=== PATIENT | female | born 1970 | race Caucasian/White ===

== ENCOUNTER → 2019-11-20 16:50 | Outpatient (BNVA) | payer BC, SELFPAY | PROVIDERS: Family Provider Family Medicine; Visit Provider Obstetrics & Gynecology | DX: R53.83 Other fatigue (principal) | CPT/HCPCS: 84443 ==

== ENCOUNTER → 2019-11-28 09:46 | Outpatient (BNVA) | payer BC, SELFPAY | PROVIDERS: Family Provider Family Medicine; Visit Provider Obstetrics & Gynecology | DX: N90.89 Other specified noninflammatory disorders of vulva and perineum (principal) | CPT/HCPCS: 88305 ==

== ENCOUNTER 2020-04-19 12:00 | Outpatient (CLI) | payer BC, SELFPAY | END 2020-04-19 12:01 | disposition home or self-care (01) | LOC: SLEEP 04-20 15:04 | PROVIDERS: Family Provider Family Medicine; Visit Provider Specialist | DX: G47.10 Hypersomnia, unspecified (principal) | CPT/HCPCS: G0399 ==

== ENCOUNTER → 2020-09-29 17:30 | Outpatient (BNVA) | payer BC, SELFPAY | PROVIDERS: Family Provider Family Medicine; Visit Provider Family Medicine | DX: Z20.828 Contact with and (suspected) exposure to other viral communicable diseases (principal) | CPT/HCPCS: 87635 ==

== ENCOUNTER 2020-10-25 13:45 | Outpatient (CLI) | payer OTHER, SELFPAY ==
--- NOTE | 2020-10-25 13:50 | MM_ITS ---
WS: [id number] BILATERAL DIGITAL SCREENING MAMMOGRAPHY WITH CAD CLINICAL INFORMATION: SCREENING HISTORY: Screening mammogram. No current complaints. COMPARISON: [id number] TECHNIQUE: Bilateral CC and MLO views. FINDINGS: The breasts are composed of heterogeneous fibroglandular density tissue, which can limit the detectio n of small underlying mass lesions. No suspicious mass, asymmetry, calcifications, or architectural d istortion. No evidence of malignancy. MM/[id number] IMPRESSION: BI-RADS: 1-Negative FOLLOW UP: 1 Year Follow-up Recommend return to annual screening mammography.
== END 2020-10-25 13:46 | disposition home or self-care (01) ==
PROVIDERS: Family Provider Family Medicine; Visit Provider Obstetrics & Gynecology
DX: Z12.31 Encounter for screening mammogram for malignant neoplasm of breast (principal)
CPT/HCPCS: 77067

== ENCOUNTER → 2021-01-24 09:24 | Outpatient (BNVA) | payer OTHER, SELFPAY | PROVIDERS: Family Provider Family Medicine; Visit Provider Obstetrics & Gynecology | DX: Z01.411 Encounter for gynecological examination (general) (routine) with abnormal findings (principal) | CPT/HCPCS: 80061; 84443; 85027 ==

== ENCOUNTER 2022-01-24 11:25 | Outpatient (CLI) | payer OTHER, SELFPAY ==
--- NOTE | 2022-01-24 11:31 | MM_ITS ---
WS: [id number] Bilateral screening 3D tomosynthesis digital mammogram, 01/24/2022 Clinical Data: SCREENING Comparison: 10/25/2020, 05/06/2019, 12/24/2017, 11/20/2016, 09/17/2015, 09/01/2014, 08/01/2013, 03/01/2012, , 06/26/2028. Findings: The breast parenchymal pattern shows heterogeneous tissue No spiculated masses or clustered calcifica tions are seen. There are no secondary signs of carcinoma. MM/[id number] Impression: 1. Negative bilateral mammogram unchanged. 2. Recommend annual screening mammograms. BIRADS: 1-Negative FOLLOW UP: 1 Year Follow-up The CAD radio program checker was used.
== END 2022-01-24 11:26 | disposition home or self-care (01) ==
PROVIDERS: PCP Family Medicine; Visit Provider Family Medicine
DX: Z12.31 Encounter for screening mammogram for malignant neoplasm of breast (principal)
CPT/HCPCS: 77063; 77067

== ENCOUNTER → 2022-01-31 16:04 | Outpatient (BNVA) | payer OTHER, SELFPAY | PROVIDERS: PCP Family Medicine; Visit Provider Clinical Nurse Specialist Adult Health | DX: R03.0 Elevated blood-pressure reading, without diagnosis of hypertension (principal) | CPT/HCPCS: 80053; 84443 ==

== ENCOUNTER → 2022-03-16 08:41 | Outpatient (BNVA) | payer OTHER, SELFPAY | PROVIDERS: PCP Family Medicine; Visit Provider Obstetrics & Gynecology | DX: L98.9 Disorder of the skin and subcutaneous tissue, unspecified (principal) | CPT/HCPCS: 88304; 88342 ==

== ENCOUNTER → 2022-07-26 11:40 | Outpatient (BNVA) | payer OTHER, SELFPAY | PROVIDERS: PCP Family Medicine; Visit Provider Clinical Nurse Specialist Adult Health | DX: J40 Bronchitis, not specified as acute or chronic (principal) | CPT/HCPCS: 87426 ==

== ENCOUNTER 2023-03-19 09:20 | Outpatient (CLI) | payer OTHER, SELFPAY ==
--- NOTE | 2023-03-19 09:26 | MM_ITS ---
WS: [id number] SCREENING DIGITAL TOMOSYNTHESIS MAMMOGRAM WITH CAD HISTORY: Screening. COMPARISON: 01/24/2022 and 10/25/2020 Bilateral CC and MLO with tomosynthesis views submitted. Synthetic mammography reviewed. Computer aid ed detection analyzed. Breast composition: The breasts are heterogeneously dense, which may obscure small masses. No suspici ous masses, microcalcifications or architectural distortion. Benign calcification anterior LEFT breas t. MM/[id number] IMPRESSION: BI-RADS: 2-Benign FOLLOW UP: 1 Year Follow-up
== END 2023-03-19 09:21 | disposition home or self-care (01) ==
PROVIDERS: PCP Family Medicine; Visit Provider Obstetrics & Gynecology
DX: Z12.31 Encounter for screening mammogram for malignant neoplasm of breast (principal)
CPT/HCPCS: 77063; 77067

== ENCOUNTER → 2023-10-19 10:48 | Outpatient (BNVA) | payer OTHER, SELFPAY | PROVIDERS: PCP Family Medicine; Visit Provider Nurse Practitioner Family | DX: R50.9 Fever, unspecified (principal); J10.1 Influenza due to other identified influenza virus with other respiratory manifestations | CPT/HCPCS: 87400; 87426 ==

== ENCOUNTER 2024-05-06 06:54 | Day surgery (SDC) | payer OTHER, SELFPAY ==
--- NOTE | 2024-05-06 05:38 | P.HPUD_ITS ---
Surgery/Procedure H&P Update DATE OF PROCEDURE: May 06, 2024 DATE H&P PERFORMED: 04/09/24 H&P UPDATE INFORMATION: I have reviewed H&P completed within last 30 days, I have examined patient prior to procedure, No changes to prior documentation and H[place] in [facility] date indicated PLANNED PROCEDURE: Operation Date: 05/06/24 08:00 Proposed Procedures p Colonoscopy 00158, G0105, Z12.11(Not Applicable) - Fredo Bethea MD
[2024-05-06] MEDS: sodium chloride 0.9% 1,000 ML 30 ML IV (07:12)
[2024-05-06 07:14] VITALS: BP 123/90; PULSE 77; RESP 18; TEMP 36.1; O2SAT 97; BMI 28.3
--- NOTE | 2024-05-06 07:34 | P.ANESASSM_ITS ---
Pre-Anesthetic Assessment Height/Weight: Height 1.65 m Weight 77.111 kg Temp Pulse Resp BP Pulse Ox O2 Del Method 97.0 F L 77 18 123/90 97 Room Air 05/06/24 07:14 05/06/24 07:14 05/06/24 07:14 05/06/24 07:14 05/06/24 07:14 05/06/24 07:14 Preop Diagnosis: screening Operation Date: 05/06/24 08:00 Proposed Procedures p Colonoscopy 52525, G0105, Z12.11(Not Applicable) - Fredo Bethea MD Was Beta Vadim taken within 24 hours: N/A Was Clonidine taken within 24 hours: N/A Last intake: Intake Last Liquid Date 05/05/24 Last Liquid Time 18:00 Last Solid Date 05/04/24 Social No tobacco twice a week Exam alert and oriented x 3 Airway Submandibular: within normal limits Cervical ROM: within normal limits Mallampati: Class II Dentition: full History/ROS No significant history except as noted Pulmonary Asthma inhaler for coughing CV/HEM None reported None reported Hepatic None reported GI None reported Metabolic None reported Musc/skel None reported Neuropsych None reported Anesthetic Plan ASA status: 2 Anesthesia: MAC Risk of > 500 ml blood loss (7ml/kg in children): No Medications/Allergies Home Medications Medication Instructions Recorded Confirmed Last Taken Type azelastine 205.5 mcg (0.15 %) 1 spray intranasal BID 01/24/21 05/01/24 05/05/24 History nasal spray epinephrine 0.3 mg/0.3 mL 0.3 mg (0.3 mL) IM Q4H PRN 04/02/24 05/06/24 Unknown Rx injection, auto-injector (EpiPen anaphylaxis #2 ea [id number]) omeprazole 20 mg capsule,delayed 20 mg PO DAILY 04/09/24 05/01/24 05/05/24 History release Fish Oil 1 cap PO DAILY 05/01/24 05/06/24 05/05/24 History levocetirizine 5 mg tablet 5 mg PO DAILY 05/01/24 05/01/24 05/05/24 History Allergies Allergy/AdvReac Type Severity Reaction Status Date / Time adhesive Allergy ALGY-Rash Verified 05/06/24 07:07 hydrocodone [From Vicodin] AdvReac Vomiting Verified 05/06/24 07:07 Current Medications Generic Name Dose Route Start Last Admin Trade Name Reid PRN Reason Stop Dose Admin Sodium Chloride 1,000 mls @ 30 mls/hr 05/06/24 07:15 05/06/24 07:12 Sodium Chloride 0.9% IV 05/07/24 07:14 30 mls/hr .Q24H QUOC Administration PFSH Anesthesia Medical History No pertinent past medical history neghx: htn, dm, thyroid, dvt/pe PCP: Filemon Reed Stress incontinence 11/18/2018: Occasional incontinence with stress symptoms. Not significant problem per patient. History of lump of left breast 08/12/2018: Left upper outer quadrant tenderness and fullness per patient. No palpable masses. Surgical History History of tubal ligation (11/22/01) Tubal. Performed by Dr. Nieves at [facility] [place]. History of hysterectomy (01/03/05) [facility], Enterocele Repair; ovaries surgically spared. Menorrhagia, dysmenorrhea. Performed by Dr. Nieves at [facility] [place]. Hx of cholecystectomy (~2006) Laparoscopic Family History Mother Breast cancer Diagnosed in her late 40s Thyroid disease Hypertension Diabetes Grandmother Thyroid disease Brother Hypertension Diabetes Social History Smoking and tobacco/nicotine status: never used tobacco/nicotine Alcohol intake: current Alcohol intake frequency: holidays/special occasions only Substance/Drug Use: never Data Anesthesia Cardiac Studies: No Data to Display
[2024-05-06 08:30] VITALS: BP 110/74; PULSE 82; RESP 20; TEMP 36.1; O2SAT 97
[2024-05-06 08:40] VITALS: BP 133/84; PULSE 59; RESP 18; O2SAT 96
--- NOTE | 2024-05-06 15:14 | ANE.PACU2 ---
Inpatient post-anesthesia follow up: Airway intact: Yes Vital signs: Temperature 97.0 F Pulse Rate 59 Respiratory Rate 18 Blood Pressure 133/84 Pulse Oximetry 96 Oxygen Delivery Me thod Room Air Oxygen Flow Rate Fraction of Inspir ed Oxygen Hydration adequate: Yes Nausea and vomiting: No Pain level: 2 Mental status: Baseline
== END 2024-05-06 08:56 | disposition home or self-care (01) ==
PROVIDERS: PCP Family Medicine; Visit Provider Surgery
PROC: 0DJD8ZZ Inspection of Lower Intestinal Tract, Via Natural or Artificial Opening Endoscopic (ICD-10-PCS; CPT 45378; principal; 2024-05-06 08:00)
DX: Z12.11 Encounter for screening for malignant neoplasm of colon (principal); D12.5 Benign neoplasm of sigmoid colon
CPT/HCPCS: 45380; 88305; J2704; J7030

== ENCOUNTER → 2025-01-13 10:38 | Outpatient (BNVA) | payer OTHER, SELFPAY | PROVIDERS: PCP Family Medicine; Visit Provider Family Medicine | DX: E03.9 Hypothyroidism, unspecified (principal); R53.83 Other fatigue; R03.0 Elevated blood-pressure reading, without diagnosis of hypertension | CPT/HCPCS: 80053; 80061; 82306; 82607; 83036; 84443; 85025 ==

== ENCOUNTER → 2025-03-17 16:48 | Outpatient (BNVA) | payer OTHER, SELFPAY | PROVIDERS: PCP Family Medicine; Visit Provider Nurse Practitioner Women's Health | DX: R30.0 Dysuria (principal) | CPT/HCPCS: 81000; 87086 ==